=== PATIENT | female | born 2000 | race Two or more races ===

== ENCOUNTER 2024-09-29 19:05 | Emergency (ER) | payer MEDICAID, OTHER ==
[~2024-09-29] VITALS: Ht 154.9 cm; Wt 163.0 kg
--- NOTE | 2024-09-29 20:40 | DVH ---
CLINICAL INDICATION: Low back pain TECHNIQUE: 2 radiographic views of the lumbar spine were obtained. Comparison: None FINDINGS/IMPRESSION: 5 [id number] lumbar-type vertebrae. Normal alignment of the lumbar spine. Minimal posterior we dge deformity of L5 of unknown chronicity. Otherwise, the vertebral body heights are maintained and No evidence of acute traumatic fractures or spondylolisthesis. If symptoms persist, consider CT/MRI f or further evaluation.
[2024-09-29 20:52] VITALS: BP 149/96; PULSE 89; RESP 18; O2SAT 100
[2024-09-29] MEDS: HYDROcodone-ACET 10/325MG TAB PO ONE (21:01)
--- NOTE | 2024-09-29 21:05 | ED.PDOC ---
Back pain HPI HPI Comments This patient is a pleasant but severely morbidly obese 23-year-old female who arrives to the ED with complaints of low back pain that began yesterday and has worsened throughout the day. Patient states she has a history of low back pain concerns in his had prior studies done, but her primary care has not been able to locate a cause of her pain concerns. Patient denies any urinary complaints. Patient denies any fever nausea or vomiting. Patient denies any recent traumatic events. Vital signs were stable on arrival. Chief Complaint: Back Pain Time Seen by MD: 19:10 Reviewed Notes: Nurses Notes Allergies: Coded Allergies: NO KNOWN ALLERGIES (Unverified , 09/29/24) Information Source: Patient Mode of Arrival: Wheelchair Timing: Days Duration: Since onset Location of Back pain: (B) Lower back Severity: Moderate Prehospital treatment: None Quality: Sharp, Stabbing Onset: Spontaneous History of: Chronic Back Pain Past Medical History PAST MEDICAL HISTORY: Denies Past Medical History (Other): Severe morbid obesity and recent low back pain concerns. Surgical History: Denies all surgeries DISTRICT ATTORNEY History: No Pertinent DISTRICT ATTORNEY History Family History Family History: Reviewed,noncontributory to illness, No family hx of Cancer, No family hx of DM, No family hx of Heart sharad, No family hx of HTN, No family hx ofKidney sharad, No family hx of Liver sharad, No family hx of Lung sharad, No family hx of Stroke Social History Smoker: Non-Smoker Alcohol: Denies ETOH Use Drugs: Denies Drug Use Lives In: Home Constitutional: denies: chills, diaphoresis, fatigue, fever, malaise, sweats, weakness, others EENTM: denies: blurred vision, double vision, ear bleeding, ear discharge, ear drainage, ear pain, ear ringing, eye pain, eye redness, hearing loss, mouth pain, mouth swelling, nasal discharge, nose bleeding, nose congestion, nose pain, photophobia, tearing, throat pain, throat swelling, voice changes, others Respiratory: denies: cough, hemoptysis, orthopnea, SOB at rest, shortness of breath, SOB with excertion, stridor, wheezing, others Cardiovascular: denies: chest pain, dizzy spells, diaphoresis, Dyspnea on exertion, edema, irregular heart beat, left arm pain, lightheadedness, palpitations, PND, syncope, others Gastrointestinal: denies: abdomen distended, abdominal pain, blood streaked bowels, constipated, diarrhea, dysphagia, difficulty swallowing, hematemesis, melena, nausea, poor appetite, poor fluid intake, rectal bleeding, rectal pain, vomiting, others Genitourinary: denies: abnormal vagina bleeding, burning, dyspareunia, dysuria, flank pain, frequency, hematuria, incontinence, pain, , vagina discharge, urgency, others Neurological: denies: dizziness, fainting, headache, left sided numbness, left sided weakness, numbness, paresthesia, pre-existing deficit, right sided numbness, right sided weakness, seizure, speech problems, tingling, tremors, weakness, others Musculoskeletal: reports: back pain; denies: gout, joint pain, joint swelling, muscle pain, muscle stiffness, neck pain, others Integumetry: denies: bruises, change in color, change in hair/nails, dryness, laceration, lesions, lumps, rash, wounds, others Allergic/Immunocompromised: denies: Difficulty Healing, Frequent Infections, Hives, Itching, others Hematologic/Lymphatic: denies: anemia, blood clots, easy bleeding, easy bruising, swollen glands, others Endocrine: denies: excessive hunger, excessive sweating, excessive thirst, excessive urination, flushing, intolerance to cold, intolerance to heat, unexplained weight gain, unexplained weight loss, others Psychiatric: denies: anxiety, bipolar disorder, depression, hopeless, panic disorder, schizophrenia, sleepless, suicidal, others Physical Exam General Appearance: Moderate Distress (Low back pain concerns), Obese HEENT: Normal ENT Inspection, Pharynx Normal, TMs Normal Neck: Full Range of Motion, Non-Tender, Normal, Normal Inspection Respiratory: Chest Non-Tender, Lungs Clear, No Accessory Muscle Use, No Respiratory Distress, Normal Breath Sounds Cardiovascular: No Edema, No JVD, No Murmur, No Gallop, Normal Peripheral Pulses, Regular Rate/Rhythm Breast Exam: Deferred Gastrointestinal: No Organomegaly, Non Tender, No Pulsatile Mass, Normal Bowel Sounds, Soft Genitalia: Deferred Pelvic: Deferred Rectal: Deferred Extremities: Normal capillary refill, Non-tender, No pedal edema Musculoskeletal : Location: Bilateral Extremity Location: Back (Diffuse bilateral lumbar tenderness to palpation throughout. Difficult to assess due to body habitus. No signs of trauma.) Apperance: Normal Neurologic: Alert, Normal Affect, Normal Mood Cerebellar Function: Normal Reflexes: Normal Skin: Dry, Normal Color, Warm Lymphatic: No Adenopathy Was a procedure done? Was a procedure done?: No Back Pain Differential Dx Differential Diagnosis: Other (Degenerative disc disease of the lumbar spine, lumbar vertebrae fracture, low back pain) X-Ray, Labs, Meds, VS Vital Signs Date Time Temp Pulse Resp B/P (MAP) Pulse Ox O2 Delivery O2 Flow Rate FiO2 09/29/24 20:53 Room Air* 0 21 09/29/24 20:52 89 18 149/96 (113) 100 09/29/24 19:45 98.3 82 18 144/75 (98) 98 Current Medications Medications (Trade) Dose Ordered Sig/Av Route Start Time Stop Time Status Last Admin Acetaminophen/ Hydrocodone Bitart (Reynolds 10/325MG Tab) 1 tab ONCE ONCE PO 09/29/24 19:45 09/29/24 19:46 DC 09/29/24 21:01 X-Ray, Labs, Meds, VS Comment Positive from the ED were evaluated by me personally. Imaging studies were unremarkable for any degenerative disc disease. Patient appears to be having back spasms concerns. Advised patient she will need to follow up with the prima care provider for continued management as well as possible PT or orthopedic referral. Time of 1ST Reevaluation: 21:17 Reevaluation 1ST: Improved Consultation: PCP Patient Education/Counseling: Diagnosis, Treatment Family Education/Counseling: Diagnosis, Treatment Departure 1 Departure Time of Disposition: 21:18 Impression: Primary Impression: Low back pain Disposition: HOME / SELF CARE / HOMELESS Condition: Stable Additional Instructions: Advised patient follow up with her primary care provider for continued evaluation and management. e-Prescriptions Tramadol Hcl (Tramadol Hcl) 50 Mg Tab 50 MG PO Q8HP PRN, #10 TAB Prov: ZEUS TSANG PAC 09/29/24 Ibuprofen Micronized (Ibuprofen) 800 Mg Tab 800 MG PO Q8HP PRN, #20 TAB Prov: ZEUS TSANG PAC 09/29/24 Discharged With: Self, Friend Critical Care Note Critical Care Time?: No Stability Stability form required: No Heart Score Heart Score: Heart Score Response (Comments) Value History N/A 0 EKG N/A 0 Age N/A 0 Risk Factors N/A 0 Troponin N/A 0 Total 0 ZEUS TSANG [facility] Sep 29, 2024 21:05
[2024-09-29] MEDS ORDERED: IBUP-1455 PO (21:19)
[2024-09-29] MEDS ORDERED: TRAM50TA2 PO (21:19)
== END 2024-09-29 21:45 | disposition home or self-care (01) ==
LOC: ER 19:05 → EEVIPCON 19:05 → ER 21:43
DX: M54.50 Low back pain, unspecified (principal); E66.01 Morbid (severe) obesity due to excess calories; Z68.44 Body mass index [BMI] 60.0-69.9, adult
CPT/HCPCS: 72100

== ENCOUNTER 2025-07-22 21:37 | Emergency (ER) | payer MEDICAID ==
[~2025-07-22] VITALS: Ht 154.9 cm; Wt 151.6 kg
[~2025-07-22 21:37] MED LIST: IBUP-1455 PO; TRAM50TA2 PO
[2025-07-22 21:39] VITALS: TEMP 97
[2025-07-22 22:08] LABS: Mean Corpuscular Hemoglobin 24.9 pg (28.0-32.0); Nucleated Red Blood Cells % 0.0 %
[2025-07-22 22:09] LABS: Hematocrit 39.8 % (36.0-46.0); Hemoglobin 12.7 g/dL (12.2-16.2); Mean Corpuscular Volume 77.7 fL (80.0-100.0)
--- NOTE | 2025-07-22 22:17 | DVH ---
CHEST RADIOGRAPH Indication: chest pain Technique: Single frontal view of the chest was obtained COMPARISON: None FINDINGS: Lungs and pleural spaces are clear. Cardiac silhouette and giselle are within normal limits. Bones and s oft tissues demonstrate no significant abnormality. IMPRESSION: No acute disease.
[2025-07-22 22:19] LABS: Sodium 141 mmol/L (136-145)
[2025-07-22 22:20] LABS: Anion Gap 11 (5-15); Calcium 9.6 mg/dL (8.7-10.4); Carbon Dioxide 20 mmol/L (20-31); Chloride 110 mmol/L (98-107); Potassium 3.4 mmol/L (3.5-5.1)
[2025-07-22 22:25] LABS: BUN/Creatinine Ratio 14.1 (10.0-20.0)
[2025-07-22 22:29] LABS: Blood Urea Nitrogen 9 mg/dL (9-23); Glucose 114 mg/dL (74-106)
[2025-07-22] MEDS: MAALOX PLUS or MAALOX 30 ML PO ONE (22:38)
[2025-07-22] MEDS: FAMOTIDINE 20 MG TAB PO ONE (22:38)
[2025-07-22] MEDS: ONDANSETRON ODT 4 MG TAB PO ONE (22:38)
[2025-07-22] MEDS ORDERED: ALUM1SUS16 PO (23:25)
--- NOTE | 2025-07-22 23:28 | ED.PDOC ---
History of Present Illness HPI Comments 24-year-old female with past medical history of possible gastritis, underlying mental health issues presenting for evaluation of nausea over the past day and left upper quadrant, chest discomfort, nausea, vomiting over the past several hours. Patient states that yesterday she had some alcoholic beverages, however, only had a couple of drinks, not more than what she typically drinks. She states that all day today she has been feeling nauseous and unwell. She reports after she eats she developed a pressure along the left upper quadrant, going up into the left chest and up into the throat. Did have some nonbloody, nonbilious emesis with this. Denies any right upper quadrant discomfort. No fevers. No associated shortness of breath. Patient states that she takes omeprazole for her stomach, however, has never had an endoscopy. Chief Complaint: Chest Pain Time Seen by MD: 21:40 Allergies: Coded Allergies: Acetaminophen (Verified Allergy, Unknown, 07/22/25) Hydrocodone (Verified Allergy, Unknown, 07/22/25) Home Meds Active Scripts Tramadol Hcl (Tramadol Hcl) 50 Mg Tab, 50 MG PO Q8HP PRN, #10 TAB Prov:ZEUS TSANG PAC 09/29/24 Ibuprofen Micronized (Ibuprofen) 800 Mg Tab, 800 MG PO Q8HP PRN, #20 TAB Prov:ZEUS TSANG PAC 09/29/24 Information Source: Patient Mode of Arrival: Ambulatory Past Medical History PAST MEDICAL HISTORY: Denies Surgical History: Denies all surgeries YARN REWINDER History: No Pertinent YARN REWINDER History Family History Family History: Reviewed,noncontributory to illness, No family hx of Cancer, No family hx of DM, No family hx of Heart sharad, No family hx of HTN, No family hx ofKidney sharad, No family hx of Liver sharad, No family hx of Lung sharad, No family hx of Stroke Social History Smoker: Non-Smoker Alcohol: Occasionally Drugs: Denies Drug Use Lives In: Home Constitutional: reports: malaise EENTM: denies: blurred vision, double vision, ear bleeding, ear discharge, ear drainage, ear pain, ear ringing, eye pain, eye redness, hearing loss, mouth pain, mouth swelling, nasal discharge, nose bleeding, nose congestion, nose pain, photophobia, tearing, throat pain, throat swelling, voice changes, others Respiratory: denies: cough, hemoptysis, orthopnea, SOB at rest, shortness of breath, SOB with excertion, stridor, wheezing, others Cardiovascular: reports: chest pain Gastrointestinal: reports: abdominal pain, nausea, vomiting Genitourinary: denies: abnormal vagina bleeding, burning, dyspareunia, dysuria, flank pain, frequency, hematuria, incontinence, pain, , vagina discharge, urgency, others Neurological: denies: dizziness, fainting, headache, left sided numbness, left sided weakness, numbness, paresthesia, pre-existing deficit, right sided numbness, right sided weakness, seizure, speech problems, tingling, tremors, weakness, others Musculoskeletal: denies: back pain, gout, joint pain, joint swelling, muscle pain, muscle stiffness, neck pain, others Integumetry: denies: bruises, change in color, change in hair/nails, dryness, laceration, lesions, lumps, rash, wounds, others Allergic/Immunocompromised: denies: Difficulty Healing, Frequent Infections, Hives, Itching, others Hematologic/Lymphatic: denies: anemia, blood clots, easy bleeding, easy bruising, swollen glands, others Endocrine: denies: excessive hunger, excessive sweating, excessive thirst, excessive urination, flushing, intolerance to cold, intolerance to heat, unexplained weight gain, unexplained weight loss, others Psychiatric: denies: anxiety, bipolar disorder, depression, hopeless, panic disorder, schizophrenia, sleepless, suicidal, others Physical Exam General Appearance: None HEENT: Normal ENT Inspection Neck: None Respiratory: No Accessory Muscle Use Cardiovascular: No Edema, No JVD, Normal Peripheral Pulses, Regular Rate/Rhythm Breast Exam: Normal Gastrointestinal: LUQ (mild LUQ ttp) Genitalia: Deferred Pelvic: Deferred Rectal: Deferred Extremities: Normal capillary refill, Normal inspection Neurologic: Alert, building insulation installer II-XII nml as Tested Cerebellar Function: NOT DONE Reflexes: NOT DONE Skin: Normal Color Lymphatic: No Adenopathy Was a procedure done? Was a procedure done?: No EKG EKG : Pulse Rate (adult): 70 [place]: Normal Cardiac Rhythm: NSR Block: None Hypertrophy: None ST: Normal Differential Dx Considerations may include: ACS vs gastritis versus reflux versus costochondritis versus muscular chest pain versus pulmonary embolism X-Ray, Labs, Meds, VS Vital Signs Date Time Temp Pulse Resp B/P (MAP) Pulse Ox O2 Delivery O2 Flow Rate FiO2 07/22/25 21:51 70 07/22/25 21:39 97.0 93 18 155/107 100 97.0 Lab Test 07/22/25 22:00 Range/Units White Blood Count 10.4 4.4-10.8 10^3/uL Red Blood Count 5.12 4.0-5.20 10^6/uL Hemoglobin 12.7 12.2-16.2 g/dL Hematocrit 39.8 36.0-46.0 % Mean Corpuscular Volume 77.7 L 80.0-100.0 fL Mean Corpuscular Hemoglobin 24.9 L 28.0-32.0 pg Mean Corpuscular Hemoglobin Concent 32.0 32.0-36.0 g/dL Red Cell Distribution Width 15.5 H 11.8-14.3 % Platelet Count 354 140-450 10^3/uL Mean Platelet Volume 8.5 6.9-10.8 fL Neutrophils (%) (Auto) 70.5 37.0-80.0 % Lymphocytes (%) (Auto) 21.1 10.0-50.0 % Monocytes (%) (Auto) 7.1 0.0-12.0 % Eosinophils (%) (Auto) 0.9 0.0-7.0 % Basophils (%) (Auto) 0.4 0.0-2.0 % Neutrophils # (Auto) 7.3 1.6-8.6 10 ^3/uL Lymphocytes # (Auto) 2.2 0.4-5.4 10 ^3/uL Monocytes # (Auto) 0.7 0-1.3 10 ^3/uL Eosinophils # (Auto) 0.1 0-0.8 10 ^3/uL Basophils # (Auto) 0 0-0.2 10 ^3/uL Nucleated Red Blood Cells 0.0 % Sodium Level 141 136-145 mmol/L Potassium Level 3.4 L 3.5-5.1 mmol/L Chloride Level 110 H 98-107 mmol/L Carbon Dioxide Level 20 20-31 mmol/L Anion Gap 11 5-15 Blood Urea Nitrogen 9 9-23 mg/dL Creatinine 0.64 0.550-1.02 mg/dL Glomerular Filtration Rate Calc 126 >90 mL/min BUN/Creatinine Ratio 14.1 10.0-20.0 Serum Glucose 114 H 74-106 mg/dL Calcium Level 9.6 8.7-10.4 mg/dL Troponin I High Sensitivity < 3 L </=34 ng/L Current Medications Medications (Trade) Dose Ordered Sig/Av Route Start Time Stop Time Status Last Admin Famotidine (Pepcid Tablet) 20 mg ONCE ONCE PO 07/22/25 22:15 07/22/25 22:16 DC 07/22/25 22:38 Al Hydrox/Mg Hydrox/Simethicone (Maalox Plus) 30 ml ONCE ONCE PO 07/22/25 22:15 07/22/25 22:16 DC 07/22/25 22:38 Ondansetron HCl (Zofran Po) 4 mg ONCE ONCE PO 07/22/25 22:15 07/22/25 22:16 DC 07/22/25 22:38 Time of 1ST Reevaluation: 23:17 (Patient reporting improvement of discomfort.) Reevaluation 1ST: Improved Patient Education/Counseling: Diagnosis, Treatment Family Education/Counseling: No Family Present SEPSIS Sepsis Screen Date sepsis recognized/suspect: Jul 22, 2025 Time Sepsis recognized/suspect: 2140 Recent Procedure: No On Antibiotic Therapy: No Respiratory Rate >20: No Heart Rate >90: No Temp<36 C (96.8 F) or >38.3 C: No SBP <90 or MAP <65 mmHG: No New Acute Mental Status Change: No Is the patient on CPAP, BIPAP,: No Physician Orders Electrocardigram (07/22/25 21:40) Chest Xray 1 View (07/22/25 21:40) Vital Signs Date Time Temp Pulse Resp B/P (MAP) Pulse Ox O2 Delivery O2 Flow Rate FiO2 07/22/25 21:51 70 07/22/25 21:39 97.0 93 18 155/107 100 97.0 Laboratory Tests Test 07/22/25 22:00 White Blood Count 10.4 10^3/uL (4.4-10.8) Medications Medications Dose Ordered Sig/Av Route Start Time Stop Time Status Last Admin Dose Admin Al Hydrox/Mg Hydrox/Simethicone 30 ml ONCE ONCE PO 07/22/25 22:15 07/22/25 22:16 DC 07/22/25 22:38 Famotidine 20 mg ONCE ONCE PO 07/22/25 22:15 07/22/25 22:16 DC 07/22/25 22:38 Ondansetron HCl 4 mg ONCE ONCE PO 07/22/25 22:15 07/22/25 22:16 DC 07/22/25 22:38 Departure 1 Departure Time of Disposition: 23:19 (24 yo female with 1 day of feeling unwell, nausea and a few hours of left upper quadrant, left-sided chest discomfort, nausea, vomiting. Given symptoms however worsened with eating and location of discomfort seems likely consistent with gastritis versus peptic ulcer disease versus reflux. Given the reports of left-sided chest pain consider possible ACS, however, patient has a heart score of 0. Clinically does not seem consistent with true ACS. Serial EKGs obtained with no evidence of acute ischemia. Troponin obtained which was within normal limits, does not require serial troponins as I do not really suspect ACS. Patient with no pleuritic chest pain, no shortness of breath, no risk factors for pulmonary embolism, consider but do not suspect PE. Patient with no recent infectious symptoms, no cough, no fever, chest x-ray is performed which upon my review shows no evidence of focal consolidation to suggest a bacterial pneumonia. Patient has had no prior abdominal surgery, has no abdominal distention, still passing flatus from below, consider but do not suspect small-bowel obstruction. Does not require CT imaging of the abdomen and pelvis as I do not suspect any acute surgical or infectious etiologies today. CBC with no evidence of critical leukocytosis or significant anemia. Metabolic panel with no evidence of any acute electrolyte abnormalities or acute kidney insufficiency. Patient was treated for discomfort with oral Pepcid, Mylanta, OTC Zofran. No further episodes of vomiting noted here. Patient able to tolerate oral intake without further exacerbation. Stable for discharge for further outpatient management. Will be given a prescription for mylanta. Patient already takes omeprazole for stomach issues. Advised to follow up with primary care doctor for possible referral to mission manager if abdominal discomfort recurs. Patient states she already has an appointment with her primary care doctor in 1 week.) Impression: Primary Impression: Chest pain Additional Impressions: Nausea & vomiting Left upper quadrant abdominal pain Disposition: HOME / SELF CARE / HOMELESS Condition: Stable Additional Instructions: You were evaluated today for chest pain and left upper quadrant discomfort. Your cardiac workup was normal. Your symptoms may be related to stomach. Continue to take her omeprazole as previously prescribed. You were additionally given a prescription for Mylanta to take as needed for his stomach. Please follow-up with your primary care doctor as you may need further outpatient workup including a referral to a mission manager if you continue having recurrent left upper quadrant discomfort. e-Prescriptions Alum & Mag Hydrox-Simethicone (Mylanta Maximum Strength 400-400-40 mg/5Ml) 1 Hellen Hellen 1 HELLEN PO Q6HPRN PRN for 5 Days, #120 ML Prov: MARYLU STEINER MD 07/22/25 Discharged With: Self Critical Care Note Critical Care Time?: No Stability Stability form required: No Heart Score Heart Score: Heart Score Response (Comments) Value History Slightly Suspicious 0 EKG Normal 0 Age <45 0 Risk Factors No known risk factors 0 Troponin Normal limit 0 Total 0 MARYLU STEINER MD Jul 22, 2025 23:28
[2025-07-23 00:15] VITALS: BP 120/88; PULSE 78; RESP 16; O2SAT 98
--- NOTE | 2025-07-23 03:06 | ECG ---
[facility] Test Date: 2025-07-22 Test Time: 21:51:50 Pat Name: ARNOLDO BARAJAS Department: ED Room: Gender: F Flower Picker: [email or web address] : 2000 Requested By: MARYLU STEINER Order Number: [id number] Reading MD: Wayne Julio Measurements Intervals [place] Rate: 70 P: 74 OK: 163 QRS: 17 QRSD: 194 T: -63 QT: 513 QTc: 554 Interpretive Statements Sinus rhythm Supraventricular bigeminy Probable left atrial enlargement Left ventricular hypertrophy Prolonged QT interval Electronically Signed On 07-23-2025 18:50:51 PDT by Wayne Julio Please click the below link to view image of tracing.
--- NOTE | 2025-07-24 10:29 | ECG ---
[facility] Test Date: 2025-07-22 Test Time: 23:03:58 Pat Name: ARNOLDO BARAJAS Department: ED Room: Gender: F Human Resource Internship: SAEED : 2000 Requested By: MARYLU STEINER Order Number: [id number] Reading MD: Wayne Julio Measurements Intervals [place] Rate: 67 P: 49 IN: 146 QRS: 19 QRSD: 95 T: 25 QT: 399 QTc: 422 Interpretive Statements Sinus rhythm Electronically Signed On 07-24-2025 17:02:53 PDT by Wayne Julio Please click the below link to view image of tracing.
== END 2025-07-23 01:50 | disposition home or self-care (01) ==
LOC: ER 21:40
DX: R07.89 Other chest pain (principal); R11.2 Nausea with vomiting, unspecified; R10.12 Left upper quadrant pain; F10.90 Alcohol use, unspecified, uncomplicated; Z79.899 Other long term (current) drug therapy; Y90.9 Presence of alcohol in blood, level not specified
CPT/HCPCS: 36415; 71045; 80048; 84484; 85025; 93005; 99285; Q0162